=== PATIENT | male | born 1990 | race Two or more races ===

== ENCOUNTER 2019-12-18 00:45 | Observation (INO) | payer OTHER ==
--- NOTE | 2019-12-18 00:53 | ED Physician Documentation ---
PD HPI ABD PAIN - Stated complaint Stated Complaint: AB PX/N/V/FEVER - History obtained from History obtained from: Patient - History of Present Illness Timing - onset: How many hours ago (15) Timing - duration: Hours (onset 10 am of RLQ pain that has persisted and increased, with fever the past couple hours. N/V through the day.) Timing - details: Gradual onset, Still present Quality: Aching, Stabbing, Pain Location: RLQ Radiation: Lower back Improved by: No: Eating, Vomiting Worsened by: No: Eating Associated symptoms: Fever (noted in the past couple of hours.), Nausea, Vomiting (through the day and evening, intermittently). No: Hematemesis, Diarrhea (had a loose bowel movement today), Constipation Similar symptoms before: Has not had sx before Recently seen: Not recently seen Review of Systems Constitutional: reports: Fever. denies: Chills, Myalgias Nose: denies: Rhinorrhea / runny nose, Congestion Throat: denies: Sore throat Cardiac: denies: Chest pain / pressure Respiratory: denies: Cough GI: reports: Abdominal Pain, Nausea, Vomiting. denies: Abdominal Swelling, Constipation, Diarrhea, Hematemesis, Bloody / black stool : denies: Dysuria, Frequency Skin: denies: Rash, Lesions Neurologic: denies: Generalized weakness, Near syncope, Altered mental status, Headache Endocrine: denies: Weight loss, Easy bruising / bleeding Immunocompromised: denies: Immunocompromised PD PAST MEDICAL HISTORY - Past Medical History Cardiovascular: None Respiratory: None Neuro: None Endocrine/Autoimmune: None - Present Medications Home Medications: Ambulatory Orders Medication Instructions Recorded Confirmed No Known Home Medications 12/18/19 12/18/19 - Allergies Allergies/Adverse Reactions: Allergies Allergy/AdvReac Type Severity Reaction Status Date / Time No Known Drug Allergies Allergy Verified 12/18/19 00:54 - Family History Family history: reports: Other (diverticulitis at early ages) PD ED PE NORMAL - Vitals Vital signs reviewed: Yes - General General: Alert and oriented X 3, Well developed/nourished, Other (appears in some discomfort) - HEENT HEENT: Pharynx benign - Neck Neck: Supple, no meningeal sign, No adenopathy - Cardiac Cardiac: No murmur. No: RRR (regular but tachycardic initially) - Respiratory Respiratory: Clear bilaterally - Abdomen Abdomen: Normal bowel sounds, Soft, Non distended, No organomegaly, Other (Tender in the right lower quadrant with localized guarding and percussion tenderness. There is referred tenderness to the right lower quadrant from the lower left and periumbilical area. There is rebound tenderness in the lower abdomen.) - Male Male : Deferred, Other (no inguinal herniae) - Rectal Rectal: Deferred - Back Back: No CVA TTP - Derm Derm: Normal color, Warm and dry - Extremities Extremities: No tenderness to palpate, Normal ROM s pain, No edema - Neuro Neuro: Alert and oriented X 3, No motor deficit, Normal speech Eye Opening: Spontaneous Motor: Obeys Commands Verbal: Oriented GCS Score: 15 Results - Vitals Vitals: Vital Signs - 24 hr 12/18/19 00:49 Temperature 37.4 C Heart Rate 135 H Respiratory 16 Rate Blood Pressure 139/66 H O2 Saturation 98 - Labs Labs: Laboratory Tests 12/18/19 12/18/19 12/18/19 01:31 01:31 01:45 WBC 16.5 H RBC 4.68 L Hgb 14.3 Hct 40.4 L MCV 86.3 MCH 30.6 MCHC 35.4 RDW 11.9 L Plt Count 302 MPV 8.6 Neut # (Auto) 13.5 H Lymph # (Auto) 1.5 [place] # (Auto) 1.3 H Eos # (Auto) 0.1 Baso # (Auto) 0.1 Absolute Nucleated RBC 0.00 Nucleated RBC % 0.0 Sodium 134 L Potassium 3.5 Chloride 98 L Carbon Dioxide 24 Anion Gap 12.0 BUN 12 Creatinine 0.8 Estimated GFR (MDRD) 114 Glucose 110 H Calcium 9.0 Magnesium 2.0 Total Bilirubin 1.0 AST 50 H ALT 87 H Alkaline Phosphatase 48 Total Protein 8.1 Albumin 4.6 Globulin 3.5 Albumin/Globulin Ratio 1.3 Lipase 26 Urine Color YELLOW Urine Clarity CLEAR Urine pH 6.0 Ur Specific [place] 1.020 Urine Protein NEGATIVE Urine Glucose (UA) NEGATIVE Urine Ketones NEGATIVE Urine Occult Blood MODERATE H Urine Nitrite NEGATIVE Urine Bilirubin NEGATIVE Urine Urobilinogen 0.2 (NORMAL) Ur Leukocyte Esterase NEGATIVE Urine RBC 0-5 Urine WBC 0-3 Ur Squamous Epith Cells NONE SEEN Urine Bacteria None Seen Urine Culture Comments NOT INDICATED - Rads (name of study) abd CT Radiology: Prelim report reviewed (Enlarged appendix at 11 mm with some stranding around it. No signs of perforation.), See rad report PD MEDICAL DECISION MAKING - ED course Complexity details: reviewed results (Acute appendicitis on CT.), re-evaluated patient, considered differential (The progression of symptoms and exam are consistent with appendicitis. Will check labs and urine but I feel a CT is appropriate at this point in particular with peritoneal signs to evaluate for appendicitis and any signs of perforation.), d/w patient, d/w individual pension consultant (Dr. Garcia surgery) Departure - Departure Disposition: ED Place in Observation Clinical Impression: Abdominal pain Qualifiers: Abdominal location: right lower quadrant Qualified Code(s): R10.31 - Right lower quadrant pain Appendicitis Qualifiers: Appendicitis type: acute appendicitis Acute appendicitis type: with localized peritonitis Appendicitis gangrene presence: without gangrene Appendicitis perforation presence: without perforation Appendicitis abscess presence: without abscess Qualified Code(s): K35.30 - Acute appendicitis with localized peritonitis, without perforation or gangrene Condition: Stable Record reviewed to determine appropriate education?: Yes
[2019-12-18] MEDS ORDERED: SODIUM CHLORIDE 0.9% 1,000 ML IV ONE ×2 (01:16→02:53)
[2019-12-18] MEDS ORDERED: MORPHINE 2 MG/ML CARPUJECT IVP STA (01:16)
[2019-12-18] MEDS ORDERED: IOVERSOL 320 100 ML VIAL IVP ONE ×2 (01:28→02:14)
[2019-12-18 01:38] LABS: BASOPHILS # (AUTO) 0.1 10^3/uL (0.0-0.1); BASOPHILS % (AUTO) 0.3 %; EOSINOPHILS # (AUTO) 0.1 10^3/uL (0.0-0.7); EOSINOPHILS % (AUTO) 0.4 %; HGB - HEMOGLOBIN 14.3 g/dL (14.0-18.0); LYMPHOCYTES # (AUTO) 1.5 10^3/uL (1.5-3.5); LYMPHOCYTES % (AUTO) 8.8 %; MEAN CORPUSCULAR HEMOGLOBIN 30.6 pg (27.0-31.0); MEAN CORPUSCULAR HGB CONC 35.4 g/dL (32.0-36.0); MEAN CORPUSCULAR VOLUME 86.3 fL (80.0-94.0); MEAN PLATELET VOLUME 8.6 fL (7.4-11.4); MONOCYTES # (AUTO) 1.3 10^3/uL (0.0-1.0); NEUTROPHILS # (AUTO) 13.5 10^3/uL (1.5-6.6); NEUTROPHILS % (AUTO) 81.8 %; PLT - PLATELET COUNT 302 10^3/uL (130-450); RED BLOOD COUNT 4.68 10^6/uL (4.70-6.10); RED CELL DISTRIBUTION WIDTH 11.9 % (12.0-15.0); WHITE BLOOD COUNT 16.5 x10^3/uL (4.8-10.8)
[2019-12-18] MEDS ORDERED: ONDANSETRON 4 MG/2 ML VIAL IVP STA (01:38)
[2019-12-18 01:50] LABS: ALBUMIN 4.6 g/dL (3.2-5.5); ALBUMIN/GLOBULIN RATIO 1.3 (1.0-2.2); CREATININE 0.8 mg/dL (0.6-1.2); TOTAL PROTEIN 8.1 g/dL (6.7-8.2)
[2019-12-18 01:51] LABS: BILIRUBIN,URINE NEGATIVE (NEGATIVE); GLUCOSE, URINE (UA) NEGATIVE (NEGATIVE); KETONES,URINE (UA) NEGATIVE (NEGATIVE); LEUKOCYTE ESTERASE, URINE NEGATIVE (NEGATIVE); NITRITE,URINE NEGATIVE (NEGATIVE); OCCULT BLOOD,URINE MODERATE (NEGATIVE); PROTEIN,URINE NEGATIVE (NEGATIVE); UROBILINOGEN,URINE 0.2 (NORMAL) E.U./dL (NORMAL)
[2019-12-18 01:52] LABS: CLARITY,URINE CLEAR (CLEAR)
[2019-12-18 02:02] LABS: BACTERIA,URINE None Seen /HPF (None Seen); RBC,URINE 0-5 /HPF (0-5); SQUAMOUS EPITHELIAL CELL,UR NONE SEEN (<= Few)
--- NOTE | 2019-12-18 02:33 | CT Report ---
Reason: RLQ pain since AM Procedure Date: 12/18/2019 Accession Number: [id number] / [id number] Procedure: CT - Abdomen/Pelvis W CPT Code: Final Report FULL RESULT: EXAM: CT ABDOMEN AND PELVIS EXAM DATE: 12/18/2019 02:16 AM. CLINICAL HISTORY: RLQ pain since AM. COMPARISONS: None. TECHNIQUE: Routine helical CT imaging was performed through the abdomen and pelvis. IV contrast: OPTIRAY 320. Enteric contrast: No. Reconstructions: Coronal and sagittal. In accordance with CT protocol optimization, one or more of the following dose reduction techniques were utilized for this exam: automated exposure control, adjustment of mA and/or KV based on patient size, or use of iterative reconstructive technique. FINDINGS: ABDOMEN: Liver: No significant abnormality. Stomach/Distal Esophagus: No significant abnormality. Gallbladder: Fundal adenomyomatosis is present. Bile Ducts: No significant abnormality. Pancreas: No significant abnormality. Spleen: No significant abnormality. Kidneys: No suspicious solid appearing lesion. No hydronephrosis. Adrenals: No significant abnormality. Bowel: No obstruction. Average fecal residual. Appendix: Dilated appendix measuring 11 mm in diameter. Periappendiceal stranding is noted. Lymph Nodes: No pathologically enlarged nodes. Vasculature: Normal caliber aorta. Fluid: No significant free fluid. Abdominal Wall: No significant abnormality. Other: No significant abnormality. PELVIS: Prostate and Seminal Vesicles: No significant abnormality. Bladder: No significant abnormality. Lymph Nodes: No pathologically enlarged nodes. Fluid: No significant free fluid. Other: None. BONES: No suspicious bony lesions. LOWER CHEST: No significant consolidation or effusion. IMPRESSION: Acute appendicitis without evidence of perforation or abscess. RADIA
[2019-12-18] MEDS ORDERED: PIPERACILLIN/TAZOBACTAM 3.375 GM in SODIUM CHLORIDE 0.9% MINIBAG 100 ML IV STA (02:37)
[2019-12-18] MEDS: PIPERACILLIN/TAZOBACTAM 3.375 GM in SODIUM CHLORIDE 0.9% MINIBAG 100 ML IV SCH ×4 (04:00→21:29)
[2019-12-18] MEDS: SODIUM CHLORIDE 0.9% 1,000 ML IV SCH ×2 (04:00→13:00)
[2019-12-18] MEDS: LACTATED RINGERS 1,000 ML IV SCH ×2 (04:29→23:41)
[2019-12-18] MEDS: HYDROmorphone 0.5 MG/0.5 ML SYRINGE IVP PRN ×4 (04:31→16:44)
[2019-12-18 05:52] LABS: BASOPHILS % (AUTO) 0.3 %; EOSINOPHILS # (AUTO) 0.1 10^3/uL (0.0-0.7); EOSINOPHILS % (AUTO) 0.8 %; HGB - HEMOGLOBIN 12.8 g/dL (14.0-18.0); LYMPHOCYTES # (AUTO) 1.7 10^3/uL (1.5-3.5); LYMPHOCYTES % (AUTO) 14.3 %; MEAN CORPUSCULAR HEMOGLOBIN 30.7 pg (27.0-31.0); MEAN CORPUSCULAR HGB CONC 35.3 g/dL (32.0-36.0); MEAN CORPUSCULAR VOLUME 87.1 fL (80.0-94.0); MEAN PLATELET VOLUME 8.9 fL (7.4-11.4); MONOCYTES % (AUTO) 8.7 %; NEUTROPHILS # (AUTO) 8.9 10^3/uL (1.5-6.6); NEUTROPHILS % (AUTO) 75.5 %; PLT - PLATELET COUNT 282 10^3/uL (130-450); RED BLOOD COUNT 4.17 10^6/uL (4.70-6.10); RED CELL DISTRIBUTION WIDTH 11.9 % (12.0-15.0); WHITE BLOOD COUNT 11.9 x10^3/uL (4.8-10.8)
--- NOTE | 2019-12-18 10:25 | HISTORY & PHYSICAL EXAMINATION ---
Chief Complaint - Chief Complaint Chief Complaint: RLQ pain Abdominal Pain HPI - Admitted From Admitted from: ED - History Obtained From Records Reviewed: RN notes reviewed, Old records reviewed History obtained from: Patient Exam limitations: No limitations - History of Present Illness Severity at the worst: Moderate Pain Quality: Aching, Cramping, Throbbing Context-Pain started w/: Other (nothing brought it on just started out as christiano umiblical yesterday morning and got worse through the day and migrated to the RLQ. THen the pain seemed to get a little better but then he spiked a temp of 101 at home so came into the ER.) Timing: Gradual onset Duration: Days: (over yesterday) Improved with: Nothing Worsened by: Nothing Associated symptoms: Nausea, Vomiting PMH/PSH - Past Medical History Cardiovascular: positive: None Respiratory: positive: Asthma Neuro: positive: Headaches, Migraines Endocrine/Autoimmune: positive: None GI: positive: None : positive: None Psych: positive: Depression, Anxiety Musculoskeletal: positive: None Derm: positive: Psoriasis Other Past Medical History: Restless leg Social & Family Hx - Social History Smoking Status: Current every day smoker Meds/Allgy - Home Medications Home Medications: Ambulatory Orders Medication Instructions Recorded Confirmed No Known Home Medications 12/18/19 12/18/19 - Allergies Allergies/Adverse Reactions: Allergies Allergy/AdvReac Type Severity Reaction Status Date / Time No Known Drug Allergies Allergy Verified 12/18/19 00:54 Review of Systems - Constitutional Constitutional: reports: Fatigue, Fever, Poor appetite - Eyes Eyes: denies: Pain - Ears, Nose & Throat Ears, Nose & Throat: denies: Ear pain - Cardiovascular Cariovascular: denies: Irregular heart rate, Palpitations - Respiratory Respiratory: denies: Cough, Sputum production - Gastrointestinal Gastrointestinal: reports: Abdominal pain (per HPI) - Genitourinary Genitourinary: denies: Dysuria, Frequency - Musculoskeletal Musculoskeletal: denies: Back pain - All Other Systems All Other Systems: reports: Reviewed and negative Exam - Vital Signs Reviewed Vital Signs: Yes Vital Signs: Vital Signs x48h Temp Pulse Resp BP Pulse Ox 12/18/19 08:00 37.1 C 100 16 126/61 99 12/18/19 05:55 37.1 C 95 20 110/61 98 12/18/19 03:40 37.1 C 107 H 20 129/63 100 - Physical Exam General Appearance: positive: No acute distress (resting in bed, moved himself up to sit up to talk in NAD moved without obvious discomfort) Eyes Bilateral: positive: Normal inspection, No scleral icterus Neck: positive: Nml inspection Respiratory: positive: No respiratory distress, Breath sounds nml Cardiovascular: positive: Regular rate & rhythm Abdomen: positive: Other (focal mild RLQ tenderness over Mc [place]'s with deep palpation, negative rosving, neg obturator neg psoas, no pertoneal signs, no R/G/R) Skin: positive: Color nml, Warm, Dry Extremities: positive: Full ROM, Nml appearance Neurologic/Psychiatric: positive: Oriented x3, Mood/affect nml Results - Lab Results Fish Bones: 12/18/19 05:30 12/18/19 01:31 Other Lab Results: Lab Results x24hrs 12/18/19 12/18/19 12/18/19 Range/Units 05:30 01:45 01:31 WBC 11.9 H (4.8-10.8) x10^3/uL RBC 4.17 L (4.70-6.10) 10^6/uL Hgb 12.8 L (14.0-18.0) g/dL Hct 36.3 L (42.0-52.0) % MCV 87.1 (80.0-94.0) fL MCH 30.7 (27.0-31.0) pg MCHC 35.3 (32.0-36.0) g/dL RDW 11.9 L (12.0-15.0) % Plt Count 282 (130-450) 10^3/uL MPV 8.9 (7.4-11.4) fL Neut # (Auto) 8.9 H (1.5-6.6) 10^3/uL Lymph # (Auto) 1.7 (1.5-3.5) 10^3/uL [place] # (Auto) 1.0 (0.0-1.0) 10^3/uL Eos # (Auto) 0.1 (0.0-0.7) 10^3/uL Baso # (Auto) 0.0 (0.0-0.1) 10^3/uL Absolute Nucleated RBC 0.00 x10^3/uL Nucleated RBC % 0.0 /100WBC Sodium 134 L (135-145) mmol/L Potassium 3.5 (3.5-5.0) mmol/L Chloride 98 L (101-111) mmol/L Carbon Dioxide 24 (21-32) mmol/L Anion Gap 12.0 (6-13) BUN 12 (6-20) mg/dL Creatinine 0.8 (0.6-1.2) mg/dL Estimated GFR (MDRD) 114 (>89) Glucose 110 H (70-100) mg/dL Calcium 9.0 (8.5-10.3) mg/dL Magnesium 2.0 (1.7-2.8) mg/dL Total Bilirubin 1.0 (0.2-1.0) mg/dL AST 50 H (10-42) IU/L ALT 87 H (10-60) IU/L Alkaline Phosphatase 48 (42-121) IU/L Total Protein 8.1 (6.7-8.2) g/dL Albumin 4.6 (3.2-5.5) g/dL Globulin 3.5 (2.1-4.2) g/dL Albumin/Globulin Ratio 1.3 (1.0-2.2) Lipase 26 (22-51) U/L Urine Color YELLOW Urine Clarity CLEAR (CLEAR) Urine pH 6.0 (5.0-7.5) PH Ur Specific [place] 1.020 (1.002-1.030) Urine Protein NEGATIVE (NEGATIVE) mg/dL Urine Glucose (UA) NEGATIVE (NEGATIVE) mg/dL Urine Ketones NEGATIVE (NEGATIVE) mg/dL Urine Occult Blood MODERATE H (NEGATIVE) Urine Nitrite NEGATIVE (NEGATIVE) Urine Bilirubin NEGATIVE (NEGATIVE) Urine Urobilinogen 0.2 (NORMAL) (NORMAL) E.U./dL Ur Leukocyte Esterase NEGATIVE (NEGATIVE) Urine RBC 0-5 (0-5) /HPF Urine WBC 0-3 (0-3) /HPF Ur Squamous Epith Cells NONE SEEN (<= Few) Urine Bacteria None Seen (None Seen) /HPF Urine Culture Comments NOT INDICATED 12/18/19 Range/Units 01:31 WBC 16.5 H (4.8-10.8) x10^3/uL RBC 4.68 L (4.70-6.10) 10^6/uL Hgb 14.3 (14.0-18.0) g/dL Hct 40.4 L (42.0-52.0) % MCV 86.3 (80.0-94.0) fL MCH 30.6 (27.0-31.0) pg MCHC 35.4 (32.0-36.0) g/dL RDW 11.9 L (12.0-15.0) % Plt Count 302 (130-450) 10^3/uL MPV 8.6 (7.4-11.4) fL Neut # (Auto) 13.5 H (1.5-6.6) 10^3/uL Lymph # (Auto) 1.5 (1.5-3.5) 10^3/uL [place] # (Auto) 1.3 H (0.0-1.0) 10^3/uL Eos # (Auto) 0.1 (0.0-0.7) 10^3/uL Baso # (Auto) 0.1 (0.0-0.1) 10^3/uL Absolute Nucleated RBC 0.00 x10^3/uL Nucleated RBC % 0.0 /100WBC Sodium (135-145) mmol/L Potassium (3.5-5.0) mmol/L Chloride (101-111) mmol/L Carbon Dioxide (21-32) mmol/L Anion Gap (6-13) BUN (6-20) mg/dL Creatinine (0.6-1.2) mg/dL Estimated GFR (MDRD) (>89) Glucose (70-100) mg/dL Calcium (8.5-10.3) mg/dL Magnesium (1.7-2.8) mg/dL Total Bilirubin (0.2-1.0) mg/dL AST (10-42) IU/L ALT (10-60) IU/L Alkaline Phosphatase (42-121) IU/L Total Protein (6.7-8.2) g/dL Albumin (3.2-5.5) g/dL Globulin (2.1-4.2) g/dL Albumin/Globulin Ratio (1.0-2.2) Lipase (22-51) U/L Urine Color Urine Clarity (CLEAR) Urine pH (5.0-7.5) PH Ur Specific [place] (1.002-1.030) Urine Protein (NEGATIVE) mg/dL Urine Glucose (UA) (NEGATIVE) mg/dL Urine Ketones (NEGATIVE) mg/dL Urine Occult Blood (NEGATIVE) Urine Nitrite (NEGATIVE) Urine Bilirubin (NEGATIVE) Urine Urobilinogen (NORMAL) E.U./dL Ur Leukocyte Esterase (NEGATIVE) Urine RBC (0-5) /HPF Urine WBC (0-3) /HPF Ur Squamous Epith Cells (<= Few) Urine Bacteria (None Seen) /HPF Urine Culture Comments - Diagnostic Imaging Results Diagnostic Imaging Results: positive: Final report reviewed, Read independently Diagnostic Imaging Results Comments: mildly enlarge appendix without a fecalith with periappendicial stranding, consistent with early appendicitis without fecalith Impression/Plan - Problem List Problem List: 29 yo WM with RLQ pain, leukocytosis and ct consistent with early appendicitis without fecalith. HE was started on IV abx and IVF and made NPO, his repeat blood work after a single does of IV abs reveal a WBC count change form 16 to 11. In depth discussion with the patient was held. We went through the normal anatomy and physiology, we then discussed the pathophysiology of the disease and lastly the possible etiologies. We discussed his laboratory findings and response to IV abx as well as his imaging findings of early appendicitis without fecalith. We then went through the indications for the surgery and the alternatives including open vs laparoscopic approach, use of antibiotics vs surgery, and observation. We reviewed the risks, the benefits and potential short term and fdc complications of each of the options. WE went through the success rates of each options as related to the level of appendicitis and imagining findings (including with and without fecalith). They have expressed understanding of the operations complications to include but not limited to bleeding, infection, finding a normal appendix, need to convert to open operation, injury to neighboring structures, appendicle stump leak, abscess formation, as well as anesthetic complications including blood clots, heart attack, stroke and were explained to the patient. The patient understands and accepts these risks. Their questions were answered to their satisfaction. Given his response to single does abx and improvement in his clinical status he would like to try a non-surgical conservative approach. We will plan to recheck his WBC later today and monitor his clinical status. He understands that if he were to deteriorate we may have to proceed with surgery. At this time we will continue with non-surgical approach and reevaluate him later today.
--- NOTE | 2019-12-18 10:53 | PHARMACY PROGRESS NOTE ---
- Best Possible Medication History Admit Date and Time: 12/18/19 0255 Processed by: Pharmacy Medication History completed: Yes Patient Interview: Completed (Patient dose not take any prescription RXs, he takes multivitamin OTC and melatonin OTC) As the person ultimately responsible for medication therapy, providers are able to order a medication from an existing home medication list in [facility] via the "Reconcile Routine" prior to Confirmation of that medication by account support manager. Such practice is discouraged except when the physician, in their clinical judgment, deems that a medical need exists for a medication without regard to previous use.
[2019-12-18 12:22] LABS: BASOPHILS % (AUTO) 0.4 %; EOSINOPHILS # (AUTO) 0.1 10^3/uL (0.0-0.7); EOSINOPHILS % (AUTO) 1.2 %; HGB - HEMOGLOBIN 13.3 g/dL (14.0-18.0); LYMPHOCYTES # (AUTO) 1.1 10^3/uL (1.5-3.5); LYMPHOCYTES % (AUTO) 11.3 %; MEAN CORPUSCULAR HEMOGLOBIN 31.7 pg (27.0-31.0); MEAN CORPUSCULAR HGB CONC 35.6 g/dL (32.0-36.0); MEAN PLATELET VOLUME 8.5 fL (7.4-11.4); MONOCYTES # (AUTO) 0.9 10^3/uL (0.0-1.0); NEUTROPHILS # (AUTO) 7.3 10^3/uL (1.5-6.6); NEUTROPHILS % (AUTO) 77.7 %; PLT - PLATELET COUNT 253 10^3/uL (130-450); WHITE BLOOD COUNT 9.4 x10^3/uL (4.8-10.8)
--- NOTE | 2019-12-18 12:38 | PROVIDER PROGRESS NOTE ---
Subjective - General Admit Date: 12/18/19 - Review of Systems General: positive: Other (Patient reports he has not had any pain medication today feeling some gas pains overall unchanged) All Other Systems: positive: Reviewed and negative Objective - Patient Data Reviewed Vital Signs: Yes Vital Signs: Vital Signs x48h Temp Pulse Resp BP Pulse Ox 12/18/19 08:00 37.1 C 100 16 126/61 99 12/18/19 05:55 37.1 C 95 20 110/61 98 Weight: Weight 12/16/19 12/17/19 12/18/19 23:59 23:59 23:59 Weight (kg) 118 kg Intake & Output: Intake and Output Totals x24h 12/16/19 12/17/19 12/18/19 23:59 23:59 23:59 Intake Total 1770.833 Balance 1770.833 - Lab Results Lab Results: 12/18/19 12:08 12/18/19 01:31 Other Lab Results: Lab Results x24hrs 12/18/19 12/18/19 12/18/19 Range/Units 12:08 05:30 01:45 WBC 9.4 11.9 H (4.8-10.8) x10^3/uL RBC 4.20 L 4.17 L (4.70-6.10) 10^6/uL Hgb 13.3 L 12.8 L (14.0-18.0) g/dL Hct 37.4 L 36.3 L (42.0-52.0) % MCV 89.0 87.1 (80.0-94.0) fL MCH 31.7 H 30.7 (27.0-31.0) pg MCHC 35.6 35.3 (32.0-36.0) g/dL RDW 12.0 11.9 L (12.0-15.0) % Plt Count 253 282 (130-450) 10^3/uL MPV 8.5 8.9 (7.4-11.4) fL Neut # (Auto) 7.3 H 8.9 H (1.5-6.6) 10^3/uL Lymph # (Auto) 1.1 L 1.7 (1.5-3.5) 10^3/uL [place] # (Auto) 0.9 1.0 (0.0-1.0) 10^3/uL Eos # (Auto) 0.1 0.1 (0.0-0.7) 10^3/uL Baso # (Auto) 0.0 0.0 (0.0-0.1) 10^3/uL Absolute Nucleated RBC 0.00 0.00 x10^3/uL Nucleated RBC % 0.0 0.0 /100WBC Sodium (135-145) mmol/L Potassium (3.5-5.0) mmol/L Chloride (101-111) mmol/L Carbon Dioxide (21-32) mmol/L Anion Gap (6-13) BUN (6-20) mg/dL Creatinine (0.6-1.2) mg/dL Estimated GFR (MDRD) (>89) Glucose (70-100) mg/dL Calcium (8.5-10.3) mg/dL Magnesium (1.7-2.8) mg/dL Total Bilirubin (0.2-1.0) mg/dL AST (10-42) IU/L ALT (10-60) IU/L Alkaline Phosphatase (42-121) IU/L Total Protein (6.7-8.2) g/dL Albumin (3.2-5.5) g/dL Globulin (2.1-4.2) g/dL Albumin/Globulin Ratio (1.0-2.2) Lipase (22-51) U/L Urine Color YELLOW Urine Clarity CLEAR (CLEAR) Urine pH 6.0 (5.0-7.5) PH Ur Specific [place] 1.020 (1.002-1.030) Urine Protein NEGATIVE (NEGATIVE) mg/dL Urine Glucose (UA) NEGATIVE (NEGATIVE) mg/dL Urine Ketones NEGATIVE (NEGATIVE) mg/dL Urine Occult Blood MODERATE H (NEGATIVE) Urine Nitrite NEGATIVE (NEGATIVE) Urine Bilirubin NEGATIVE (NEGATIVE) Urine Urobilinogen 0.2 (NORMAL) (NORMAL) E.U./dL Ur Leukocyte Esterase NEGATIVE (NEGATIVE) Urine RBC 0-5 (0-5) /HPF Urine WBC 0-3 (0-3) /HPF Ur Squamous Epith Cells NONE SEEN (<= Few) Urine Bacteria None Seen (None Seen) /HPF Urine Culture Comments NOT INDICATED 12/18/19 12/18/19 Range/Units 01:31 01:31 WBC 16.5 H (4.8-10.8) x10^3/uL RBC 4.68 L (4.70-6.10) 10^6/uL Hgb 14.3 (14.0-18.0) g/dL Hct 40.4 L (42.0-52.0) % MCV 86.3 (80.0-94.0) fL MCH 30.6 (27.0-31.0) pg MCHC 35.4 (32.0-36.0) g/dL RDW 11.9 L (12.0-15.0) % Plt Count 302 (130-450) 10^3/uL MPV 8.6 (7.4-11.4) fL Neut # (Auto) 13.5 H (1.5-6.6) 10^3/uL Lymph # (Auto) 1.5 (1.5-3.5) 10^3/uL [place] # (Auto) 1.3 H (0.0-1.0) 10^3/uL Eos # (Auto) 0.1 (0.0-0.7) 10^3/uL Baso # (Auto) 0.1 (0.0-0.1) 10^3/uL Absolute Nucleated RBC 0.00 x10^3/uL Nucleated RBC % 0.0 /100WBC Sodium 134 L (135-145) mmol/L Potassium 3.5 (3.5-5.0) mmol/L Chloride 98 L (101-111) mmol/L Carbon Dioxide 24 (21-32) mmol/L Anion Gap 12.0 (6-13) BUN 12 (6-20) mg/dL Creatinine 0.8 (0.6-1.2) mg/dL Estimated GFR (MDRD) 114 (>89) Glucose 110 H (70-100) mg/dL Calcium 9.0 (8.5-10.3) mg/dL Magnesium 2.0 (1.7-2.8) mg/dL Total Bilirubin 1.0 (0.2-1.0) mg/dL AST 50 H (10-42) IU/L ALT 87 H (10-60) IU/L Alkaline Phosphatase 48 (42-121) IU/L Total Protein 8.1 (6.7-8.2) g/dL Albumin 4.6 (3.2-5.5) g/dL Globulin 3.5 (2.1-4.2) g/dL Albumin/Globulin Ratio 1.3 (1.0-2.2) Lipase 26 (22-51) U/L Urine Color Urine Clarity (CLEAR) Urine pH (5.0-7.5) PH Ur Specific [place] (1.002-1.030) Urine Protein (NEGATIVE) mg/dL Urine Glucose (UA) (NEGATIVE) mg/dL Urine Ketones (NEGATIVE) mg/dL Urine Occult Blood (NEGATIVE) Urine Nitrite (NEGATIVE) Urine Bilirubin (NEGATIVE) Urine Urobilinogen (NORMAL) E.U./dL Ur Leukocyte Esterase (NEGATIVE) Urine RBC (0-5) /HPF Urine WBC (0-3) /HPF Ur Squamous Epith Cells (<= Few) Urine Bacteria (None Seen) /HPF Urine Culture Comments - Current Medications Current Medications: Current Medications Generic Name Dose Route Start Last Admin Trade Name Freq PRN Reason Stop Dose Admin Hydromorphone HCl 0.5 mg 12/18/19 02:55 12/18/19 07:50 Dilaudid Inj Syringe IVP 0.5 mg Q2H PRN Administration PAIN Lactated Ringer's 1,000 mls @ 50 mls/hr 12/18/19 03:00 12/18/19 10:00 Lr IV 50 mls/hr .Q20H MARTA Infusion Sodium Chloride 1,000 mls @ 100 mls/hr 12/18/19 03:00 12/18/19 04:00 Normal Saline 0.9% IV Not Given .Q10H MARTA Piperacillin Sod/Tazobactam 100 mls @ 200 mls/hr 12/18/19 03:00 12/18/19 10:00 Sod 3.375 gm/ Sodium Chloride IV Infused Q6H MARTA Infusion - Physical Exam General Appearance: positive: No acute distress Eyes Bilateral: positive: Normal inspection Respiratory: positive: No respiratory distress, Breath sounds nml Cardiovascular: positive: Regular rate & rhythm Abdomen: positive: Other (unchanged from this am) Impression/Plan - Problem List Problem List: acute appendicitis, appears to be responding to non-surgical managment. Will plan to allow some clears and continue IV abx. Recheck cbc in am. Pt understands plan of care and is in agreement with it.
[2019-12-18] MEDS ORDERED: MORPHINE 2 MG/ML CARPUJECT IVP PRN (16:21)
[2019-12-18] MEDS ORDERED: ACETAMINOPHEN 325 MG TABLET PO PRN (16:21)
[2019-12-18] MEDS ORDERED: ONDANSETRON 4 MG/2 ML VIAL IVP PRN ×2 (16:21→22:38)
--- NOTE | 2019-12-18 20:10 | PROVIDER PROGRESS NOTE ---
Subjective - General Admit Date: 12/18/19 - Review of Systems General: positive: Fever (RN called twice for fever >38 did not respond to tylenol earlier. Remote review of chart revealed an ongoing temperature for several hours and now his HR is increasing and his SBP has gone down. I came in to exam the patient. Found him huddled on the bed with ice packs everywhere trying to cool himself off.) Gastrointestinal: positive: Other (her reports his pain is less but he appears uncomfortable) All Other Systems: positive: Reviewed and negative Objective - Patient Data Reviewed Vital Signs: Yes Vital Signs: Vital Signs x48h Temp Pulse Resp BP Pulse Ox 12/18/19 19:35 38.6 C H 103 H 109/50 L 12/18/19 19:16 38.7 C H 12/18/19 18:20 38.1 C H 12/18/19 15:44 38.9 C H 107 H 18 143/75 H 100 12/18/19 13:00 37.7 C H 105 H 18 131/63 H 99 Weight: Weight 12/16/19 12/17/19 12/18/19 23:59 23:59 23:59 Weight (kg) 118 kg Intake & Output: Intake and Output Totals x24h 12/16/19 12/17/19 12/18/19 23:59 23:59 23:59 Intake Total 2600.000 Balance 2600.000 - Lab Results Lab Results: 12/18/19 12:08 12/18/19 01:31 Other Lab Results: Lab Results x24hrs 12/18/19 12/18/19 12/18/19 Range/Units 12:08 05:30 01:45 WBC 9.4 11.9 H (4.8-10.8) x10^3/uL RBC 4.20 L 4.17 L (4.70-6.10) 10^6/uL Hgb 13.3 L 12.8 L (14.0-18.0) g/dL Hct 37.4 L 36.3 L (42.0-52.0) % MCV 89.0 87.1 (80.0-94.0) fL MCH 31.7 H 30.7 (27.0-31.0) pg MCHC 35.6 35.3 (32.0-36.0) g/dL RDW 12.0 11.9 L (12.0-15.0) % Plt Count 253 282 (130-450) 10^3/uL MPV 8.5 8.9 (7.4-11.4) fL Neut # (Auto) 7.3 H 8.9 H (1.5-6.6) 10^3/uL Lymph # (Auto) 1.1 L 1.7 (1.5-3.5) 10^3/uL [place] # (Auto) 0.9 1.0 (0.0-1.0) 10^3/uL Eos # (Auto) 0.1 0.1 (0.0-0.7) 10^3/uL Baso # (Auto) 0.0 0.0 (0.0-0.1) 10^3/uL Absolute Nucleated RBC 0.00 0.00 x10^3/uL Nucleated RBC % 0.0 0.0 /100WBC Sodium (135-145) mmol/L Potassium (3.5-5.0) mmol/L Chloride (101-111) mmol/L Carbon Dioxide (21-32) mmol/L Anion Gap (6-13) BUN (6-20) mg/dL Creatinine (0.6-1.2) mg/dL Estimated GFR (MDRD) (>89) Glucose (70-100) mg/dL Calcium (8.5-10.3) mg/dL Magnesium (1.7-2.8) mg/dL Total Bilirubin (0.2-1.0) mg/dL AST (10-42) IU/L ALT (10-60) IU/L Alkaline Phosphatase (42-121) IU/L Total Protein (6.7-8.2) g/dL Albumin (3.2-5.5) g/dL Globulin (2.1-4.2) g/dL Albumin/Globulin Ratio (1.0-2.2) Lipase (22-51) U/L Urine Color YELLOW Urine Clarity CLEAR (CLEAR) Urine pH 6.0 (5.0-7.5) PH Ur Specific [place] 1.020 (1.002-1.030) Urine Protein NEGATIVE (NEGATIVE) mg/dL Urine Glucose (UA) NEGATIVE (NEGATIVE) mg/dL Urine Ketones NEGATIVE (NEGATIVE) mg/dL Urine Occult Blood MODERATE H (NEGATIVE) Urine Nitrite NEGATIVE (NEGATIVE) Urine Bilirubin NEGATIVE (NEGATIVE) Urine Urobilinogen 0.2 (NORMAL) (NORMAL) E.U./dL Ur Leukocyte Esterase NEGATIVE (NEGATIVE) Urine RBC 0-5 (0-5) /HPF Urine WBC 0-3 (0-3) /HPF Ur Squamous Epith Cells NONE SEEN (<= Few) Urine Bacteria None Seen (None Seen) /HPF Urine Culture Comments NOT INDICATED 12/18/19 12/18/19 Range/Units 01:31 01:31 WBC 16.5 H (4.8-10.8) x10^3/uL RBC 4.68 L (4.70-6.10) 10^6/uL Hgb 14.3 (14.0-18.0) g/dL Hct 40.4 L (42.0-52.0) % MCV 86.3 (80.0-94.0) fL MCH 30.6 (27.0-31.0) pg MCHC 35.4 (32.0-36.0) g/dL RDW 11.9 L (12.0-15.0) % Plt Count 302 (130-450) 10^3/uL MPV 8.6 (7.4-11.4) fL Neut # (Auto) 13.5 H (1.5-6.6) 10^3/uL Lymph # (Auto) 1.5 (1.5-3.5) 10^3/uL [place] # (Auto) 1.3 H (0.0-1.0) 10^3/uL Eos # (Auto) 0.1 (0.0-0.7) 10^3/uL Baso # (Auto) 0.1 (0.0-0.1) 10^3/uL Absolute Nucleated RBC 0.00 x10^3/uL Nucleated RBC % 0.0 /100WBC Sodium 134 L (135-145) mmol/L Potassium 3.5 (3.5-5.0) mmol/L Chloride 98 L (101-111) mmol/L Carbon Dioxide 24 (21-32) mmol/L Anion Gap 12.0 (6-13) BUN 12 (6-20) mg/dL Creatinine 0.8 (0.6-1.2) mg/dL Estimated GFR (MDRD) 114 (>89) Glucose 110 H (70-100) mg/dL Calcium 9.0 (8.5-10.3) mg/dL Magnesium 2.0 (1.7-2.8) mg/dL Total Bilirubin 1.0 (0.2-1.0) mg/dL AST 50 H (10-42) IU/L ALT 87 H (10-60) IU/L Alkaline Phosphatase 48 (42-121) IU/L Total Protein 8.1 (6.7-8.2) g/dL Albumin 4.6 (3.2-5.5) g/dL Globulin 3.5 (2.1-4.2) g/dL Albumin/Globulin Ratio 1.3 (1.0-2.2) Lipase 26 (22-51) U/L Urine Color Urine Clarity (CLEAR) Urine pH (5.0-7.5) PH Ur Specific [place] (1.002-1.030) Urine Protein (NEGATIVE) mg/dL Urine Glucose (UA) (NEGATIVE) mg/dL Urine Ketones (NEGATIVE) mg/dL Urine Occult Blood (NEGATIVE) Urine Nitrite (NEGATIVE) Urine Bilirubin (NEGATIVE) Urine Urobilinogen (NORMAL) E.U./dL Ur Leukocyte Esterase (NEGATIVE) Urine RBC (0-5) /HPF Urine WBC (0-3) /HPF Ur Squamous Epith Cells (<= Few) Urine Bacteria (None Seen) /HPF Urine Culture Comments - Current Medications Current Medications: Current Medications Generic Name Dose Route Start Last Admin Trade Name Freq PRN Reason Stop Dose Admin Acetaminophen 650 mg 12/18/19 16:21 12/18/19 16:42 Tylenol PO 650 mg Q4HR PRN Administration Pain or Fever > 38C (100.4F) Hydromorphone HCl 0.5 mg 12/18/19 02:55 12/18/19 16:44 Dilaudid Inj Syringe IVP 0.5 mg Q2H PRN Administration PAIN Lactated Ringer's 1,000 mls @ 50 mls/hr 12/18/19 03:00 12/18/19 13:00 Lr IV Infused .Q20H [facility] Infusion Sodium Chloride 1,000 mls @ 100 mls/hr 12/18/19 03:00 12/18/19 15:20 Normal Saline 0.9% IV 100 mls/hr .Q10H [facility] Infusion Piperacillin Sod/Tazobactam 100 mls @ 200 mls/hr 12/18/19 03:00 12/18/19 15:20 Sod 3.375 gm/ Sodium Chloride IV Infused Q6H [facility] Infusion Ondansetron HCl 4 mg 12/18/19 16:21 12/18/19 16:43 Zofran Inj IVP 4 mg Q6HR PRN Administration Nausea / Vomiting - Physical Exam General Appearance: positive: Other (Laying in beed curled up on his side with several ice packs) Respiratory: positive: Breath sounds nml Cardiovascular: positive: Tachycardia Abdomen: positive: Other (He now has mild guarding and rebound with increased RLQ tenderness) Skin: positive: Diaphoresis, Other (Flushed and very warm to the touch) Impression/Plan - Problem List Problem List: Acute appendicitis. Despite his early response with normalizing WBC and return of bowel function he has now had a significant clinical deteriation with fevers, and a change in his abdominal exam. I no longer recommend we continue to attempt conservative non-surgical management. We discussed possibly recheking his WBC or imgaing, but given his clinical exam I do not think it would alter my recommnedations. I also do not think we should wait until the am to proceed with surgery. This was discussed wit the patient and we reviewed the risks, the benefits and potential short term and lobsterman complications the surgery and he expressed understanding of the operations complications to include but not limited to bleeding, infection, finding a normal appendix, need to convert to open operation, injury to neighboring structures, appendicle stump leak, abscess formation, as well as anesthetic complications including blood clots, heart attack, stroke and were explained to the patient. The patient understands and accepts these risks. Their questions were answered to their satisfaction. Informed consent obtained.
[2019-12-18] MEDS ORDERED: BUPIVACAINE 0.5% PF 30 ML VIAL ONE (21:02)
[2019-12-18] MEDS ORDERED: LIDOCAINE 1%-EPI 1:100000 20 ML MDV ONE (21:02)
[2019-12-18] MEDS ORDERED: ONDANSETRON 4 MG/2 ML VIAL IVP ONE (21:28)
[2019-12-18] MEDS ORDERED: fentaNYL 250 MCG/5 ML VIAL IVP ONE (21:28)
[2019-12-18] MEDS ORDERED: DEXAMETHASONE 4 MG/ML VIAL IVP ONE (21:28)
[2019-12-18] MEDS ORDERED: MIDAZOLAM 2 MG/2 ML VIAL IVP ONE (21:28)
[2019-12-18] MEDS ORDERED: ROCURONIUM 50 MG/5 ML VIAL IVP ONE (21:28)
[2019-12-18] MEDS ORDERED: fentaNYL 100 MCG/2 ML VIAL IVP ONE (21:28)
[2019-12-18] MEDS ORDERED: PROPOFOL 200 MG/20 ML VIAL IVP ONE ×2 (21:28)
[2019-12-18] MEDS ORDERED: KETOROLAC 30 MG/ML VIAL IVP ONE (21:28)
[2019-12-18] MEDS ORDERED: NEOSTIGMINE 1 MG/1 ML 10 ML MDV IVP ONE (21:28)
[2019-12-18] MEDS ORDERED: GLYCOPYRROLATE 1 MG/5 ML VIAL IVP ONE (21:28)
--- NOTE | 2019-12-18 21:58 | ANESTHESIA ---
Pre-Anesthesia VS, & Labs - Diagnosis appendicitis - Procedure laparoscopic appendectomy Vital Signs: Temp Pulse Resp BP Pulse Ox 38.7 C H 96 20 122/76 96 12/18/19 20:44 12/18/19 20:44 12/18/19 20:44 12/18/19 20:44 12/18/19 20:44 Height 6 ft 4 in Weight (kg) 118 kg Body Mass Index 31.6 - Lab Results Current Lab Results: Laboratory Tests 12/18/19 12:08: WBC 9.4, RBC 4.20 L, Hgb 13.3 L, Hct 37.4 L, MCV 89.0, MCH 31.7 H, MCHC 35.6, RDW 12.0, Plt Count 253, MPV 8.5, Neut # (Auto) 7.3 H, Lymph # (Auto) 1.1 L, [place] # (Auto) 0.9, Eos # (Auto) 0.1, Baso # (Auto) 0.0, Absolute Nucleated RBC 0.00, Nucleated RBC % 0.0 12/18/19 05:30: WBC 11.9 H, RBC 4.17 L, Hgb 12.8 L, Hct 36.3 L, MCV 87.1, MCH 30.7, MCHC 35.3, RDW 11.9 L, Plt Count 282, MPV 8.9, Neut # (Auto) 8.9 H, Lymph # (Auto) 1.7, [place] # (Auto) 1.0, Eos # (Auto) 0.1, Baso # (Auto) 0.0, Absolute Nucleated RBC 0.00, Nucleated RBC % 0.0 12/18/19 01:31: Sodium 134 L, Potassium 3.5, Chloride 98 L, Carbon Dioxide 24, Anion Gap 12.0, BUN 12, Creatinine 0.8, Estimated GFR (MDRD) 114, Glucose 110 H, Calcium 9.0, Magnesium 2.0, Total Bilirubin 1.0, AST 50 H, ALT 87 H, Alkaline Phosphatase 48, Total Protein 8.1, Albumin 4.6, Globulin 3.5, Albumin/Globulin Ratio 1.3, Lipase 26 12/18/19 01:31: WBC 16.5 H, RBC 4.68 L, Hgb 14.3, Hct 40.4 L, MCV 86.3, MCH 30.6, MCHC 35.4, RDW 11.9 L, Plt Count 302, MPV 8.6, Neut # (Auto) 13.5 H, Lymph # (Auto) 1.5, [place] # (Auto) 1.3 H, Eos # (Auto) 0.1, Baso # (Auto) 0.1, Absolute Nucleated RBC 0.00, Nucleated RBC % 0.0 Fish Bones: 12/18/19 12:08 12/18/19 01:31 Home Medications and Allergies Home Medications: Ambulatory Orders Melatonin 3 mg PO QPM PRN 12/18/19 Multivitamin 1 tab PO DAILY 12/18/19 Active Medications Acetaminophen (Tylenol) 650 mg PO Q4HR PRN PRN Reason: Pain or Fever > 38C (100.4F) Last Admin: 12/18/19 16:42 Dose: 650 mg Hydromorphone HCl (Dilaudid Inj Syringe) 0.5 mg IVP Q2H PRN PRN Reason: PAIN Last Admin: 12/18/19 16:44 Dose: 0.5 mg Lactated Ringer's (Lr) 1,000 mls @ 50 mls/hr IV .Q20H [facility] Last Infusion: 12/18/19 13:00 Dose: Infused Sodium Chloride (Normal Saline 0.9%) 1,000 mls @ 100 mls/hr IV .Q10H [facility] Last Infusion: 12/18/19 15:20 Dose: 100 mls/hr Piperacillin Sod/Tazobactam (Sod 3.375 gm/ Sodium Chloride) 100 mls @ 200 mls/hr IV Q6H [facility] Last Admin: 12/18/19 21:29 Dose: 200 mls/hr Morphine Sulfate (Morphine (Carpuject)) 2 mg IVP Q2HR PRN PRN Reason: PAIN Ondansetron HCl (Zofran Inj) 4 mg IVP Q6HR PRN PRN Reason: Nausea / Vomiting Last Admin: 12/18/19 16:43 Dose: 4 mg Melatonin 3 mg PO QPM PRN 12/18/19 Multivitamin 1 tab PO DAILY 12/18/19 Allergies/Adverse Reactions: Allergies Allergy/AdvReac Type Severity Reaction Status Date / Time No Known Drug Allergies Allergy Verified 12/18/19 00:54 Anes History & Medical History - Anesthetic History Anesthesia Complications: reports: No previous complications Family history of Anesthesia Complications: Denies Family history of Malignant Hyperthermia: Denies - Medical History Cardiovascular: reports: None Pulmonary: reports: Asthma (childhood) Gastrointestinal: reports: None Urinary: reports: None Neuro: reports: Headaches, Migraines Musculoskeletal: reports: None Endocrine/Autoimmune: reports: None Blood Disorders: reports: None Skin: reports: Psoriasis Smoking Status: Current every day smoker Psychosocial: reports: Depression, Anxiety Other Past Medical History: Restless leg Exam General: Alert, Oriented x3, Cooperative Dental: WNL Mouth Opening: Greater than 4 Fingerbreadths Neck Mobility: Normal Mallampati classification: I Thyromental Distance: 4-6 cm Respiratory: Lungs clear Cardiovascular: Regular rate, Normal S1, Normal S2, No murmurs Mental/Cognitive Status: Alert/Oriented X3 Plan Anesthesia Type: General Consent for Procedure(s) Verified and Reviewed: Yes Code Status: Attempt Resuscitation ASA classification: 2-Mild systemic disease Is this case an emergency?: Yes
[2019-12-18] MEDS ORDERED: BUPIVACAINE 0.5% PF 30 ML VIAL SUBQ ONE ×2 (22:02)
[2019-12-18] MEDS ORDERED: LIDOCAINE 1%-EPI 1:100000 30 ML MDV SUBQ ONE ×2 (22:02)
[2019-12-18] MEDS ORDERED: LACTATED RINGERS 1,000 ML IV ONE ×3 (22:02→23:25)
--- NOTE | 2019-12-18 22:32 | OPERATIVE REPORT ---
Operative Report - General Admit Date: 12/18/19 Pre-Op Diagnosis: acute appendicitis failed non-surgical management Procedure Performed: Laparoscopic appendectomy Post Op Diagnosis: same - Procedure Note Primary Surgeon: Romi Garcia MD Anesthesia Technique: General ET tube Pathology: appendix IV Fluids (mL): 800 Estimated Blood Loss (mL): 25 Indications: Jordan is a 29 yo MW with Acute appendicitis. Despite his early response with normalizing WBC and return of bowel function he has now had a significant clinical deteriation with fevers, and a change in his abdominal exam. I no longer recommend we continue to attempt conservative non-surgical management. We discussed possibly recheking his WBC or imgaing, but given his clinical exam I do not think it would alter my recommnedations. I also do not think we should wait until the am to proceed with surgery. This was discussed wit the patient and we reviewed the risks, the benefits and potential short term and alf complications the surgery and he expressed understanding of the operations complications to include but not limited to bleeding, infection, finding a normal appendix, need to convert to open operation, injury to neighboring structures, appendicle stump leak, abscess formation, as well as anesthetic complications including blood clots, heart attack, stroke and were explained to the patient. The patient understands and accepts these risks. Their questions were answered to their satisfaction. Informed consent obtained. Findings: acute supperative appendicitis Complications: none - Other Other Information/Narrative: The patient was transferred to the operating room, the patient was placed in supine position. After the induction of adequate general endotracheal anesth esia per the current [facility] protocol process, the patient was posited with left arm tucked and prepped and draped in the usual sterile fashion. A surgical time out was held according to the hospital regulations and agreed upon by the entire operative crew. The periumbilical area was anesthetized and a vertical incision was made just below the umbilicus. The soft tissue was dissected down to the fascia with S retractors.The Fascia identified and incised and the peritoneal cavity entered under direct visualization. A 12 mm cannula was inserted and the abdomen was then insufflated with CO2 to 15 mm Hg pressure. Laparoscopy was performed. The appendix appeared inflamed with mild surrounding inflamation and no signs of perforation. Two additional 5 mm abdominal trocars were then placed under direct visualization and after anesthetizing the areas one in the suprapubic area and one in the LLQ. The appendix was grasped and a window was developed at its base. The Endo-LACI was then placed into the window at the base and the appendix was stapled across healthy appearing base near the cecum. The mesoappendix was then stapled with the Endo-LACI stapler in a similar fashion. The appendix was then placed into an endo pouch and removed through the umbilical port site. The area was inspected. Hemostasis was confirmed. The rest of the exploration was normal. The abdomen was decompressed of the CO2 and the trocars were removed under direct visualization. The umbilical fascia was closed with the 0 Vicryl in figure of 8. The skin was closed with 4-0 Monocryl subcuticular sutures. Steril adhesive dressings were applied. The drapes were removed and the patient was awakened. Patient was then extubated and and recovered in the operating room per the current [facility] protocol and then taken to the floor in stable condition. The patient tolerated the procedure well. All counts were correct. There were no complications. The specimen was sent to Pathology.
[2019-12-18] MEDS ORDERED: HYDROmorphone 0.5 MG/0.5 ML SYRINGE IVP PRN (22:38)
[2019-12-19] MEDS: HYDROcod/ACETAM 5/325 MG TABLET PO PRN ×2 (01:53→07:52)
[2019-12-19] MEDS: PIPERACILLIN/TAZOBACTAM 3.375 GM in SODIUM CHLORIDE 0.9% MINIBAG 100 ML IV SCH ×2 (02:52→08:55)
[2019-12-19] MEDS: SODIUM CHLORIDE 0.9% 1,000 ML IV SCH ×2 (03:34→10:02)
[2019-12-19 05:46] LABS: BASOPHILS % (AUTO) 0.1 %; LYMPHOCYTES # (AUTO) 0.5 10^3/uL (1.5-3.5); MEAN CORPUSCULAR HEMOGLOBIN 31.3 pg (27.0-31.0); MEAN CORPUSCULAR HGB CONC 34.6 g/dL (32.0-36.0); MEAN CORPUSCULAR VOLUME 90.6 fL (80.0-94.0); MEAN PLATELET VOLUME 8.7 fL (7.4-11.4); MONOCYTES # (AUTO) 0.2 10^3/uL (0.0-1.0); MONOCYTES % (AUTO) 2.5 %; NEUTROPHILS # (AUTO) 6.8 10^3/uL (1.5-6.6); NEUTROPHILS % (AUTO) 89.9 %; PLT - PLATELET COUNT 238 10^3/uL (130-450); RED BLOOD COUNT 4.15 10^6/uL (4.70-6.10); RED CELL DISTRIBUTION WIDTH 11.8 % (12.0-15.0); WHITE BLOOD COUNT 7.6 x10^3/uL (4.8-10.8)
[2019-12-19 05:54] LABS: ALBUMIN 3.9 g/dL (3.2-5.5); ALBUMIN/GLOBULIN RATIO 1.2 (1.0-2.2); BILIRUBIN,TOTAL 1.7 mg/dL (0.2-1.0); CALCIUM 8.5 mg/dL (8.5-10.3); TOTAL PROTEIN 7.2 g/dL (6.7-8.2)
[2019-12-19 07:46] VITALS: BP 118/79
[2019-12-19] MEDS: LACTATED RINGERS 1,000 ML IV SCH (11:03)
--- NOTE | 2019-12-19 11:55 | Discharge Plan ---
Discharge Plan Problem Reviewed?: Yes Disposition: Home, Self Care Condition: Stable Prescriptions: HYDROcod/ACETAM 5/325 [Ledbetter 5/325] 1 - 2 tab PO Q4HR PRN #20 tablet PRN Reason: Pain Diet: Regular Activity Restrictions: Activity as Tolerated Shower Restrictions: No (no bath tub, soaking, hot tub, pool for 1 week) Weight Bearing: Full Weight No Smoking: If you smoke, Please STOP! Call for help. Follow-up with: Cory Meraz MD [Provider Admit Priv/Credential] -
--- NOTE | 2019-12-19 11:58 | PROVIDER PROGRESS NOTE ---
Subjective - General Admit Date: 12/18/19 Procedure Date: 12/18/19 Post Op Days: 1 Procedure Performed: Lap appy - Review of Systems General: positive: No symptoms (Doing well, hungry no fevers, wants to go home) HEENT: positive: No symptoms Cardiovascular: positive: No symptoms Gastrointestinal: positive: No symptoms (minor post oeprative discomfort), Other (her reports his pain is less but he appears uncomfortable) All Other Systems: positive: Reviewed and negative Objective - Patient Data Reviewed Vital Signs: Yes Vital Signs: Vital Signs x48h Temp Pulse Resp BP Pulse Ox 12/19/19 07:44 36.8 C 86 18 118/79 99 12/19/19 05:43 36.7 C 81 18 112/70 98 Weight: Weight 12/17/19 12/18/19 12/19/19 23:59 23:59 23:59 Weight (kg) 118 kg Intake & Output: Intake and Output Totals x24h 12/17/19 12/18/19 12/19/19 23:59 23:59 23:59 Intake Total 3520.000 1406.667 Balance 3520.000 1406.667 - Lab Results Lab Results: 12/19/19 05:25 12/19/19 05:25 Other Lab Results: Lab Results x24hrs 12/19/19 12/19/19 12/18/19 Range/Units 05:25 05:25 12:08 WBC 7.6 9.4 (4.8-10.8) x10^3/uL RBC 4.15 L 4.20 L (4.70-6.10) 10^6/uL Hgb 13.0 L 13.3 L (14.0-18.0) g/dL Hct 37.6 L 37.4 L (42.0-52.0) % MCV 90.6 89.0 (80.0-94.0) fL MCH 31.3 H 31.7 H (27.0-31.0) pg MCHC 34.6 35.6 (32.0-36.0) g/dL RDW 11.8 L 12.0 (12.0-15.0) % Plt Count 238 253 (130-450) 10^3/uL MPV 8.7 8.5 (7.4-11.4) fL Neut # (Auto) 6.8 H 7.3 H (1.5-6.6) 10^3/uL Lymph # (Auto) 0.5 L 1.1 L (1.5-3.5) 10^3/uL [place] # (Auto) 0.2 0.9 (0.0-1.0) 10^3/uL Eos # (Auto) 0.0 0.1 (0.0-0.7) 10^3/uL Baso # (Auto) 0.0 0.0 (0.0-0.1) 10^3/uL Absolute Nucleated RBC 0.00 0.00 x10^3/uL Nucleated RBC % 0.0 0.0 /100WBC Sodium 137 (135-145) mmol/L Potassium 4.1 (3.5-5.0) mmol/L Chloride 102 (101-111) mmol/L Carbon Dioxide 26 (21-32) mmol/L Anion Gap 9.0 (6-13) BUN 11 (6-20) mg/dL Creatinine 1.0 (0.6-1.2) mg/dL Estimated GFR (MDRD) 88 L (>89) Glucose 160 H (70-100) mg/dL Calcium 8.5 (8.5-10.3) mg/dL Total Bilirubin 1.7 H (0.2-1.0) mg/dL AST 44 H (10-42) IU/L ALT 72 H (10-60) IU/L Alkaline Phosphatase 41 L (42-121) IU/L Total Protein 7.2 (6.7-8.2) g/dL Albumin 3.9 (3.2-5.5) g/dL Globulin 3.3 (2.1-4.2) g/dL Albumin/Globulin Ratio 1.2 (1.0-2.2) - Current Medications Current Medications: Current Medications Generic Name Dose Route Start Last Admin Trade Name Freq PRN Reason Stop Dose Admin Acetaminophen 650 mg 12/18/19 16:21 12/18/19 16:42 Tylenol PO 650 mg Q4HR PRN Administration Pain or Fever > 38C (100.4F) Hydrocodone Bitart/Acetaminophen 2 tab 12/18/19 22:38 12/19/19 07:52 [place] 5/325 PO 1 tab Q4HR PRN Administration PAIN Hydromorphone HCl 0.5 mg 12/18/19 02:55 12/18/19 16:44 Dilaudid Inj Syringe IVP 0.5 mg Q2H PRN Administration PAIN Lactated Ringer's 1,000 mls @ 100 mls/hr 12/18/19 03:00 12/19/19 11:33 Lr IV 0 mls/hr .Q10H [facility] Infusion Sodium Chloride 1,000 mls @ 100 mls/hr 12/18/19 03:00 12/19/19 10:02 Normal Saline 0.9% IV Not Given .Q10H [facility] Piperacillin Sod/Tazobactam 100 mls @ 200 mls/hr 12/18/19 03:00 12/19/19 09:30 Sod 3.375 gm/ Sodium Chloride IV Infused Q6H [facility] Infusion Ondansetron HCl 4 mg 12/18/19 16:21 12/18/19 16:43 Zofran Inj IVP 4 mg Q6HR PRN Administration Nausea / Vomiting - Physical Exam Wound/Incisions: positive: Healing well, No drainage. negative: Erythema General Appearance: positive: No acute distress Cardiovascular: positive: Regular rate & rhythm Abdomen: positive: Nml bowel sounds, No distention, Other (mild post operative discomfort) Impression/Plan - Problem List Problem List: POD #1 s/p lap appy for acute appendicitis. Doing well, ambulating, tolerating diet, tolerating oral pain medication. Ok for d/c home with outpatient follow up. Patient was provided signs and symptoms that would warrant earlier follow up or return to the ER.
== END 2019-12-19 12:48 | disposition home or self-care (01) ==
LOC: ED 00:45 → MS2 02:55
PROVIDERS: ADMIT Surgery; ATTEND Surgery
PROC: 0DTJ4ZZ Resection of Appendix, Percutaneous Endoscopic Approach (ICD-10-PCS; principal; 2019-12-18 21:00)
DX: K35.80 Unspecified acute appendicitis (principal); G25.81 Restless legs syndrome
CPT/HCPCS: 36415; 44970; 74177; 80053; 81001; 83690; 83735; 85025; 96361; 96374; 96375; 99285; A9270; G0378; J1170; J3010; J7120; Q9967; 87086

== ENCOUNTER 2019-12-20 13:17 | Emergency (ER) | payer OTHER ==
[2019-12-20] MEDS ORDERED: KETOROLAC 30 MG/ML VIAL IVP STA (13:34)
[2019-12-20] MEDS ORDERED: SODIUM CHLORIDE 0.9% 1,000 ML IV ONE (13:40)
--- NOTE | 2019-12-20 13:40 | ED Physician Documentation ---
PD HPI ABD PAIN - Stated complaint Stated Complaint: POST OP COMPLICATIONS/FEVER - Chief complaint Chief Complaint: Fever - History obtained from History obtained from: Patient - History of Present Illness Timing - onset: Today (Previously healthy 29-year-old gentleman was admitted here a couple of days ago for acute uncomplicated appendicitis. Initially treated medically but eventually had a laparoscopic appendectomy late the same evening. He was discharged yesterday afternoon in good condition. He says that on discharge his pain was about where he expected it to be. Over the last few hours developed a fever up to 101 at home associated with band like hot lower abdominal pain across the pelvis on both sides.) Review of Systems Ten Systems: 10 systems reviewed and negative Constitutional: reports: Fever, Chills Cardiac: denies: Chest pain / pressure, Palpitations Respiratory: denies: Dyspnea, Cough GI: denies: Nausea, Vomiting, Constipation (Had a normal BM this morning), Diarrhea PD PAST MEDICAL HISTORY - Past Medical History Cardiovascular: None Respiratory: Asthma (childhood) Neuro: Headaches, Migraines Endocrine/Autoimmune: None GI: None : None Psych: Depression, Anxiety Musculoskeletal: None Derm: Psoriasis - Present Medications Home Medications: Ambulatory Orders Medication Instructions Recorded Confirmed Melatonin 3 mg PO QPM PRN 12/18/19 12/20/19 Multivitamin 1 tab PO DAILY 12/18/19 12/20/19 HYDROcod/ACETAM 5/325 [[place] 5/325] 1 - 2 tab PO Q4HR PRN #20 tablet 12/19/19 12/20/19 Azithromycin 1 tab PO DAILY #4 tablet 12/20/19 Cefdinir 300 mg PO BID #20 capsule 12/20/19 - Allergies Allergies/Adverse Reactions: Allergies Allergy/AdvReac Type Severity Reaction Status Date / Time No Known Drug Allergies Allergy Verified 12/20/19 13:34 - Social History Smoking Status: Current every day smoker PD ED PE NORMAL - Vitals Vital signs reviewed: Yes - General General: Alert and oriented X 3, No acute distress - HEENT HEENT: PERRL, EOMI - Neck Neck: Supple, no meningeal sign, No bony TTP - Cardiac Cardiac: RRR, No murmur - Respiratory Respiratory: No respiratory distress, Clear bilaterally - Abdomen Abdomen: Other (Laparoscopic incisions are looking fine, abdomen is soft with normal bowel tones with modest tenderness in the pelvis on both sides. No surgical signs.) - Back Back: No CVA TTP, No spinal TTP - Derm Derm: Normal color, Warm and dry - Extremities Extremities: No edema, No calf tenderness / cord - Neuro Neuro: Alert and oriented X 3, Normal speech Results - Vitals Vitals: Vital Signs - 24 hr 12/20/19 12/20/19 13:30 14:35 Temperature 37.9 C H Heart Rate 119 H 80 Respiratory 22 14 Rate Blood Pressure 157/98 H 123/65 O2 Saturation 100 100 Oxygen O2 Source Room air - Labs Labs: Laboratory Tests 12/20/19 12/20/19 12/20/19 13:45 13:45 13:45 WBC 10.6 RBC 3.82 L Hgb 12.3 L Hct 33.6 L MCV 88.0 MCH 32.2 H MCHC 36.6 H RDW 11.9 L Plt Count 252 MPV 9.0 Neut # (Auto) 7.7 H Lymph # (Auto) 1.6 [place] # (Auto) 1.1 H Eos # (Auto) 0.1 Baso # (Auto) 0.0 Absolute Nucleated RBC 0.00 Nucleated RBC % 0.0 Sodium 136 Potassium 3.1 L Chloride 102 Carbon Dioxide 25 Anion Gap 9.0 BUN 7 Creatinine 0.8 Estimated GFR (MDRD) 114 Glucose 103 H Lactic Acid 1.4 Calcium 8.3 L Total Bilirubin 0.9 AST 33 ALT 62 H Alkaline Phosphatase 40 L Total Protein 7.2 Albumin 3.9 Globulin 3.3 Albumin/Globulin Ratio 1.2 Lipase 22 Urine Color Urine Clarity Urine pH Ur Specific [place] Urine Protein Urine Glucose (UA) Urine Ketones Urine Occult Blood Urine Nitrite Urine Bilirubin Urine Urobilinogen Ur Leukocyte Esterase Ur Microscopic Review Urine Culture Comments 12/20/19 14:39 WBC RBC Hgb Hct MCV MCH MCHC RDW Plt Count MPV Neut # (Auto) Lymph # (Auto) [place] # (Auto) Eos # (Auto) Baso # (Auto) Absolute Nucleated RBC Nucleated RBC % Sodium Potassium Chloride Carbon Dioxide Anion Gap BUN Creatinine Estimated GFR (MDRD) Glucose Lactic Acid Calcium Total Bilirubin AST ALT Alkaline Phosphatase Total Protein Albumin Globulin Albumin/Globulin Ratio Lipase Urine Color YELLOW Urine Clarity CLEAR Urine pH 7.0 Ur Specific [place] <=1.005 Urine Protein NEGATIVE Urine Glucose (UA) NEGATIVE Urine Ketones NEGATIVE Urine Occult Blood SMALL H Urine Nitrite NEGATIVE Urine Bilirubin NEGATIVE Urine Urobilinogen 0.2 (NORMAL) Ur Leukocyte Esterase NEGATIVE Ur Microscopic Review INDICATED Urine Culture Comments Not Reportable - Rads (name of study) CT of the abdomen and pelvis Radiology: EMP read contemporaneously (Interval appendectomy, expected inflammation, small amounts of patchy groundglass opacity in the left lower lobe.) PD MEDICAL DECISION MAKING - ED course ED course: 29-year-old gentleman presents after being discharged yesterday for appendectomy, now with fever abdominal pain shaking chills. High concern for abscess, however none was found but he does appear to have an early left lower lobe pneumonia. Coronavirus testing will be done but he will be placed on antibiotics. Departure - Departure Disposition: 01 Home, Self Care Clinical Impression: Abdominal pain Qualifiers: Abdominal location: generalized Qualified Code(s): R10.84 - Generalized abdominal pain Pneumonia Qualifiers: Pneumonia type: due to unspecified organism Laterality: left Lung location: lower lobe of lung Qualified Code(s): J18.9 - Pneumonia, unspecified organism Condition: Good Record reviewed to determine appropriate education?: Yes Instructions: Pneumonia Dc Prescriptions: Azithromycin 1 tab PO DAILY #4 tablet Cefdinir 300 mg PO BID #20 capsule Comments: Coronavirus testing should be done in 24 to 48 hours, we will call you with results. Return for new or worsening symptoms. Fill the antibiotics and start them tomorrow morning. Follow-up with your doctor within the week.
[2019-12-20] MEDS ORDERED: IOVERSOL 320 100 ML VIAL IVP ONE ×2 (13:47→14:14)
[2019-12-20 14:07] LABS: BASOPHILS % (AUTO) 0.4 %; EOSINOPHILS # (AUTO) 0.1 10^3/uL (0.0-0.7); EOSINOPHILS % (AUTO) 0.5 %; HGB - HEMOGLOBIN 12.3 g/dL (14.0-18.0); LYMPHOCYTES # (AUTO) 1.6 10^3/uL (1.5-3.5); LYMPHOCYTES % (AUTO) 15.4 %; MEAN CORPUSCULAR HEMOGLOBIN 32.2 pg (27.0-31.0); MEAN CORPUSCULAR HGB CONC 36.6 g/dL (32.0-36.0); MONOCYTES # (AUTO) 1.1 10^3/uL (0.0-1.0); MONOCYTES % (AUTO) 10.4 %; NEUTROPHILS # (AUTO) 7.7 10^3/uL (1.5-6.6); NEUTROPHILS % (AUTO) 72.9 %; PLT - PLATELET COUNT 252 10^3/uL (130-450); RED BLOOD COUNT 3.82 10^6/uL (4.70-6.10); RED CELL DISTRIBUTION WIDTH 11.9 % (12.0-15.0); WHITE BLOOD COUNT 10.6 x10^3/uL (4.8-10.8)
[2019-12-20 14:20] LABS: ALBUMIN 3.9 g/dL (3.2-5.5); ALBUMIN/GLOBULIN RATIO 1.2 (1.0-2.2); BILIRUBIN,TOTAL 0.9 mg/dL (0.2-1.0); CALCIUM 8.3 mg/dL (8.5-10.3); CREATININE 0.8 mg/dL (0.6-1.2); TOTAL PROTEIN 7.2 g/dL (6.7-8.2)
--- NOTE | 2019-12-20 14:40 | CT Report ---
Reason: IV only, increase low abd pain/fever s/p appy Procedure Date: 12/20/2019 Accession Number: [id number] / [id number] Procedure: CT - Abdomen/Pelvis W CPT Code: Final Report FULL RESULT: EXAM: CT ABDOMEN AND PELVIS EXAM DATE: 12/20/2019 02:13 PM. CLINICAL HISTORY: IV only, increase low abd pain/fever s/p appy. COMPARISONS: ABDOMEN/PELVIS W 12/18/2019 2:02 AM. TECHNIQUE: Routine helical CT imaging was performed through the abdomen and pelvis. IV contrast: 100 mL Optiray 320. Enteric contrast: No. Reconstructions: Coronal and sagittal. In accordance with CT protocol optimization, one or more of the following dose reduction techniques were utilized for this exam: automated exposure control, adjustment of mA and/or KV based on patient size, or use of iterative reconstructive technique. FINDINGS: Lung Bases: Patchy groundglass opacities at the left lower lobe base. Liver: Normal. No masses. Gallbladder/Bile Ducts: Unremarkable. Spleen: Normal. Pancreas: Normal. Adrenal Glands: Normal. Kidneys: Normal. No masses or hydronephrosis. Peritoneal Cavity/Bowel: Interval appendectomy. No abscess. Pelvic Organs: Normal. The bladder and visualized pelvic organs are within normal limits. Vasculature: No aneurysms or other significant abnormality. Bones: Disk bulge at L4/L5. Other: Periumbilical abdominal wall inflammation with overlying cutaneous thickening, consistent with interval laparoscopic surgery. Small fat-containing umbilical hernia. Inflammation in the left lower quadrant abdominal wall, consistent with interval laparoscopic surgery with overlying cutaneous thickening. Inflammation in the midline pelvic wall. IMPRESSION: 1. Interval appendectomy. No abscess. 2. Inflammation in the abdominal and pelvic wall with overlying cutaneous thickening, consistent with interval laparoscopic surgery. 3. Small amount of patchy groundglass opacity in the left lower lobe base may be infectious or inflammatory RADIA
[2019-12-20] MEDS ORDERED: cefTRIAXone 2 GM in SODIUM CHLORIDE 0.9% MINIBAG 100 ML IV STA (14:50)
[2019-12-20] MEDS ORDERED: AZITHROMYCIN INJ 500 MG in SODIUM CHLORIDE 0.9% 250 ML IV STA (14:50)
[2019-12-20] MEDS ORDERED: ACETAMINOPHEN 325 MG TABLET PO STA (14:54)
[2019-12-20 14:56] LABS: BILIRUBIN,URINE NEGATIVE (NEGATIVE); CLARITY,URINE CLEAR (CLEAR); GLUCOSE, URINE (UA) NEGATIVE (NEGATIVE); KETONES,URINE (UA) NEGATIVE (NEGATIVE); LEUKOCYTE ESTERASE, URINE NEGATIVE (NEGATIVE); NITRITE,URINE NEGATIVE (NEGATIVE); OCCULT BLOOD,URINE SMALL (NEGATIVE); PROTEIN,URINE NEGATIVE (NEGATIVE); UROBILINOGEN,URINE 0.2 (NORMAL) E.U./dL (NORMAL)
[2019-12-20 15:04] LABS: BACTERIA,URINE None Seen /HPF (None Seen); RBC,URINE 0-5 /HPF (0-5); SQUAMOUS EPITHELIAL CELL,UR NONE SEEN (<= Few)
[2019-12-20 16:14] VITALS: BP 119/63
== END 2019-12-20 16:55 | disposition home or self-care (01) ==
LOC: ED 13:17
DX: R10.84 Generalized abdominal pain (principal); J18.9 Pneumonia, unspecified organism; F17.200 Nicotine dependence, unspecified, uncomplicated
CPT/HCPCS: 36415; 74177; 80053; 81001; 83605; 83690; 85025; 87040; 87635; 96361; 96365; 96366; 96368; 96375; 99283; 99284; A9270; Q9967; 81003; 81599; 87086